=== PATIENT | male | born 1985 | race Caucasian/White ===

== ENCOUNTER 2020-03-01 21:13 | Emergency (ER) | payer OTHER ==
[~2020-03-01] VITALS: Ht 193 cm; Wt 240.0 kg
[2020-03-01] MEDS ORDERED: TETRACAINE 0.5% OPHTH SOLUTION 4ML BOTTLE. OU ONE (21:45)
[2020-03-01] MEDS ORDERED: ERYTHROMYCIN 0.5% OPHTH OINTMENT 1GM TUBE. OU ONE (21:45)
[2020-03-01] MEDS ORDERED: FLUORESCEIN OPHTH TEST STRIP. OU ONE (21:45)
[2020-03-01] MEDS ORDERED: ERYT1OIN6 OP (22:00)
--- NOTE | 2020-03-01 22:01 | PHYS DOC ---
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 Reports was using an OxyAcetaline torch. Denies use of contacts. Patient tried using [id number] rewetting drops without significant improvement. Denies fever or chills. Denies grinding metal. Review of Systems: Review of Systems: Constitutional: Denies fever or chills Eyes: Reports redness and eye pain bilaterally; denies vision change Integument: Denies rash or skin lesions Neurologic: Denies headache, focal weakness or sensory changes Complete systems were reviewed and found to be within normal limits, except as documented in this note. Current Medications: Current Medications Medications (Trade) Dose Ordered Sig/Diego Start Time Stop Time Status Last Admin Dose Admin Erythromycin (Romycin) 0.25 inch 1X ONCE 03/01/20 21:45 03/01/20 21:46 DC Fluorescein Sodium (Ful-April) 2 strip 1X ONCE 03/01/20 21:45 03/01/20 21:46 DC Tetracaine HCl (Tetracaine) 2 drop 1X ONCE 03/01/20 21:45 03/01/20 21:46 DC Allergies: Allergies: Allergies Coded Allergies Type Severity Reaction Last Updated Verified No Known Drug Allergies 03/01/20 No Physical Exam: PE: Constitutional: Well developed, well nourished, no acute distress, non-toxic appearance HENT: Normocephalic, atraumatic Eyes: PERRL, EOMI, conjunctiva injected bilaterally, no discharge, no fluorescein uptake Neck: Normal range of motion, no tenderness, supple Lungs & Thorax: No respiratory distress, equal chest rise and fall Extremities: No tenderness, ROM intact Neurologic: Alert and oriented X 3, no focal deficits noted Psychologic: Affect normal, judgment normal EKG: EKG: [] Radiology/Procedures: Radiology/Procedures: [] Course & Med Decision Making: Course & Med Decision Making Patient presents with history of bilateral eye pain and redness after using an OxyAcetaline welding torch today at home at 1100. Denies use of contacts. Tetracaine and fluorescence utilized. Patient reports significant improvement of discomfort with tetracaine. No fluorescence uptake on Wood's lamp exam. NO retained foreign body noted. Prophylactic erythromycin ophthalmic ointment applied. Patient stable for discharge with outpatient follow-up with PCP/apartment house manager. Ophthalmology referral provided. Discussed findings and plan with patient, who acknowledges understanding and agreement. Reyna Disclaimer: Reyna Disclaimer: This electronic medical record was generated, in whole or in part, using a voice recognition dictation system. Departure Departure Impression: Primary Impression: Welders' keratitis of both eyes Disposition: HOME, SELF-CARE Condition: STABLE Referrals: NO PCP (PCP) ELLY PISANO MD Patient Instructions: Eye - Ultraviolet Keratitis, [id number] Additional Instructions: Use over the counter Tylenol and/or Ibuprofen for pain or discomfort. Scripts Erythromycin Base (Erythromycin) 1 Gm Oint...g. 0.25 INCH OP QID for 5 Days, #1 TUBE Prov: RYAN ULLOA DO 03/01/20 RYAN ULLOA DO March 01, 2020 22:00
[2020-03-01 22:27] VITALS: BP 140/79
== END 2020-03-01 22:27 | disposition home or self-care (01) ==
LOC: ER 21:13
DX: H16.133 Photokeratitis, bilateral (principal); W89.8XXA Exposure to other man-made visible and ultraviolet light, initial encounter; Y93.89 Activity, other specified; Y92.098 Other place in other non-institutional residence as the place of occurrence of the external cause; Y99.8 Other external cause status
CPT/HCPCS: 99283

== ENCOUNTER 2020-04-17 04:19 | Emergency (ER) | payer OTHER ==
[~2020-04-17] VITALS: Ht 193 cm; Wt 106.8 kg
[~2020-04-17 04:19] MED LIST: ERYT1OIN6 OP
[2020-04-17 05:22] VITALS: BP 119/62
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
[2020-04-17] MEDS ORDERED: DIPH,PERTUSS(ACELL),TET VAC/PF 0.5 ML SYRINGE. VAX IM ONE (06:30)
[2020-04-17] MEDS ORDERED: NEOMY/BACITR/POLYMYXIN OINT PACKET. TP ONE (06:30)
--- NOTE | 2020-04-17 06:36 | RAD ---
EXAM: RIGHT HAND 3 VIEWS. HISTORY: Pain and swelling at the second and third metacarpophalangeal joints. COMPARISON: None. FINDINGS: No fractures are identified. Alignment is maintained. Joint spaces are maintained. IMPRESSION: 1. No fracture. Electronically signed by: Efraín Breaux MD (04/17/2020 6:33 AM) [facility]
== END 2020-04-17 06:31 | disposition home or self-care (01) ==
LOC: ER 04:19
DX: S60.221A Contusion of right hand, initial encounter (principal); V86.56XA Driver of dirt bike or motor/cross bike injured in nontraffic accident, initial encounter; Y92.488 Other paved roadways as the place of occurrence of the external cause; Y93.89 Activity, other specified; Y99.8 Other external cause status
CPT/HCPCS: 73130; 90471; 90715; 99283